=== PATIENT | female | born 1940 | race Caucasian/White ===

== ENCOUNTER → 2017-10-13 | Outpatient (CLI) | payer MEDICARE, BC ==
[~2017-10-13] MED LIST: PROHANCE 279.3MG/ML 15ML VIAL (A9576) As Ordered
== END ==
LOC: M RAD 10:42
DX: D35.02 Benign neoplasm of left adrenal gland (principal)
CPT/HCPCS: 74181

== ENCOUNTER → 2018-10-19 | Outpatient (CLI) | payer MEDICARE, BC ==
--- NOTE | 2018-10-20 06:17 | REP ---
MRI ADRENAL GLANDS WITHOUT CONTRAST: Multiple sequences obtained in the axial and coronal planes without the use of intravenous contrast. Comparison is made with a prior MRI 10/13/2017 as well as 10/31/2016. Left adrenal nodule again demonstrates signal characteristics compatible with adenoma. It is unchanged in size since the prior MRI examinations, measuring approximately 3.5 x 2.8 cm. Right adrenal gland is normal. The visualized liver, spleen, pancreas and kidneys are unremarkable and unchanged. I see no adenopathy or free fluid in the visualized abdomen. IMPRESSION: Stable left adrenal adenoma. Electronically Signed by Ras Carson MD 10/20/2018 11:48 P
== END ==
LOC: M RAD 09:44
PROVIDERS: ATTEND Nurse Practitioner Family
DX: D35.02 Benign neoplasm of left adrenal gland (principal)

== ENCOUNTER → 2019-10-20 | Outpatient (CLI) | payer MEDICARE, BC ==
[2019-10-20 14:13] LABS: BASO # 0.1 10^3/uL (0.0-0.2); BASO % 0.8 % (0.0-1.0); EOS # 0.2 10^3/uL (0.0-0.5); EOS % 1.4 % (0.0-3.0); HEMATOCRIT 43.8 % (36.0-47.0); HEMOGLOBIN 14.1 g/dl (12.0-15.5); LYMPH # 2.9 10^3/uL (1.5-5.0); LYMPH % 24.9 % (24.0-44.0); MEAN CORPUSCULAR HEMOGLOBIN 28.7 pg (27.0-33.0); MEAN CORPUSCULAR HGB CONC 32.2 g/dl (32.0-36.5); MONO # 0.7 10^3/uL (0.0-0.8); MONO % 5.9 % (0.0-5.0); NEUTROPHILS # 7.9 10^3/uL (1.5-8.5); NEUTROPHILS % 66.7 % (36.0-66.0); PLATELET COUNT, AUTOMATED 327 10^3/uL (150-450); RED BLOOD COUNT 4.92 10^6/uL (4.00-5.40); WHITE BLOOD COUNT 11.8 10^3/uL (4.0-10.0)
[2019-10-20 14:14] LABS: C REACTIVE PROTEIN QUANTITATIV < 0.30 MG/DL (0.00-0.30); RHEUMATOID FACTOR QUANT < 10.0 IU/ML (<15.0)
[2019-10-20 15:08] LABS: ERYTHROCYTE SEDIMENTATION RATE 25 mm/hr (0-30)
[2019-10-22 01:11] LABS: ANTI DOUBLE STRAND-DNA AB <1 IU/mL (0-9); ANTINUCLEAR ANTIBODIES DIRECT Positive (Negative); Lyme Disease IgG/IgM Antibodie <0.91 ISR (0.00-0.90); Lyme Disease IgM Ab Quantitati <0.80 index (0.00-0.79); RNP ANTIBODIES <0.2 AI (0.0-0.9); SJOGREN'S ANTI SS-A <0.2 AI (0.0-0.9); SJOGREN'S ANTI SS-B <0.2 AI (0.0-0.9); SMITH ANTIBODIES <0.2 AI (0.0-0.9)
== END ==
LOC: M PLALAB 11:29
PROVIDERS: ATTEND Orthopaedic Surgery
DX: M17.0 Bilateral primary osteoarthritis of knee (principal)

== ENCOUNTER → 2020-06-21 | Outpatient (REF) | payer MEDICARE, BC ==
[2020-06-22 11:03] LABS: APPEARANCE, URINE CLEAR (CLEAR); BACTERIA, URINE AUTO 1+ (NEGATIVE); BILIRUBIN, URINE AUTO NEGATIVE (NEGATIVE); BLOOD, URINE BLOOD 3+ (NEGATIVE); CALCIUM OXALATE CRYSTALS SMALL; COLOR, URINE YELLOW (YELLOW); GLUCOSE, URINE (UA) AUTO NEGATIVE (NEGATIVE); KETONE, URINE AUTO NEGATIVE (NEGATIVE); LEUKOCYTE ESTERASE, URINE AUTO 2+ (NEGATIVE); MUCUS, URINE SMALL (NEGATIVE); NITRITE, URINE AUTO NEGATIVE (NEGATIVE); PROTEIN, URINE AUTO NEGATIVE (NEGATIVE); RBC, URINE AUTO 11 /HPF (0-3); SPECIFIC GRAVITY URINE AUTO 1.008 (1.002-1.035); SQUAMOUS EPITHELIAL CELL UR AU 2 /HPF (0-6); UROBILINOGEN, URINE AUTO 0.2 mg/dL (0.0-2.0); WBC, URINE AUTO 35 /HPF (0-3)
== END ==
LOC: M SMT 10:05
PROVIDERS: ATTEND Nurse Practitioner Women's Health
DX: Z85.51 Personal history of malignant neoplasm of bladder (principal); Z79.899 Other long term (current) drug therapy

== ENCOUNTER → 2020-07-11 | Outpatient (REF) | payer MEDICARE, BC | LOC: M SMT 17:00 | PROVIDERS: ATTEND Urology | DX: Z85.51 Personal history of malignant neoplasm of bladder (principal) ==

== ENCOUNTER 2020-08-14 11:18 | Day surgery (SDC) | payer MEDICARE, BC ==
[~2020-08-14] VITALS: Ht 162.6 cm; Wt 71.2 kg
[~2020-08-14 11:18] MED LIST changes: +ACET-683 PO; +AMLO25TA PO; +ATEN50TA2 PO; +ATOR1TAB21 PO; +CILO50TA PO; +D31000TA2 PO; +FURO20TA2 PO; +IRON27TA2 PO; +LORA-243 PO; +LOSA100T50 PO; +LR 1,000 ML IV ONE; +METF500T13 PO; +OMEP40CA4 PO; -PROHANCE 279.3MG/ML 15ML VIAL (A9576) As Ordered; +SUCR1SS PO; +TRAM50TA2 PO; +VENTAER INH; +VITACAP8 PO; +VITMTA PO; +ceFAZolin SOD 2 GM in IV 1 EA IV ONE
[2020-08-14] MEDS ORDERED: ONDANSETRON 4MG/2ML VIAL As Ordered ONE (13:30)
[2020-08-14] MEDS ORDERED: LIDOCAINE 2% 100MG/5ML SDV (FOR ANES.) As Ordered ONE (13:30)
[2020-08-14] MEDS ORDERED: propofoL 200 MG/20 ML VIAL As Ordered ONE (13:30)
[2020-08-14] MEDS ORDERED: ROCURONIUM BROMIDE 50 MG/5 ML VIAL As Ordered ONE ×2 (13:30→15:27)
[2020-08-14] MEDS ORDERED: fentaNYL 250 MCG/5 ML INJECTION (J3010) As Ordered ONE (13:31)
[2020-08-14] MEDS ORDERED: MIDAZOLAM INJ 2MG/2ML VIAL (J2250 PER 1MG) As Ordered ONE (13:31)
[2020-08-14] MEDS ORDERED: dexameTHASONE 4 MG/ML 1ML VIAL (J1100 PER 1MG) As Ordered ONE (13:31)
[2020-08-14] MEDS ORDERED: ePHEDrine SULFATE 25 MG/5 ML(5MG/ML) SYRINGE As Ordered ONE (15:15)
[2020-08-14] MEDS ORDERED: ACETAMINOPHEN 1000MG 100ML IV BTL (OFIRMEV) (J0131 PER 10MG) As Ordered ONE (15:17)
[2020-08-14] MEDS ORDERED: SUGAMMADEX SODIUM 500 MG/5 ML VIAL (BRIDION) As Ordered ONE (15:17)
[2020-08-14] MEDS ORDERED: fentaNYL 100 MCG/2 ML INJECTION (J3010) As Ordered ONE (16:36)
[2020-08-14] MEDS ORDERED: ONDANSETRON 4MG/2ML VIAL IV PRN (17:40)
[2020-08-14] MEDS ORDERED: HYDROMORPHONE HCL 0.5 MG/ 0.5 ML SYRINGE (J1170 PER 1) IV PRN (17:40)
[2020-08-14] MEDS ORDERED: ACETAMINOPHEN TAB 650MG DOSE (2X325MG) PO PRN (17:40)
[2020-08-14] MEDS ORDERED: LR 1,000 ML IV SCH (17:40)
[2020-08-14] MEDS ORDERED: fentaNYL 100 MCG/2 ML INJECTION (J3010) IV PRN (17:40)
[2020-08-14] MEDS: oxyCODONE 5MG TAB PO PRN ×2 (18:43→19:14)
[2020-08-14 20:00] VITALS: BP 133/63
--- NOTE | 2020-08-14 20:15 | RO ---
OPERATIVE NOTE DATE OF OPERATION: 08/14/2020 PREOPERATIVE DIAGNOSES: Bladder cancer. POSTOPERATIVE DIAGNOSIS: Bladder cancer. PROCEDURE: Cystoscopy, transurethral resection of bladder tumors (greater than 5 cm). SURGEON: Gordo Potter MD [place] UNDERWRITER: None. ANESTHESIA: General. OPERATIVE INDICATIONS: This is a 80-year-old female who was diagnosed with bladder cancer at an outside facility several months ago. She established care with us and on office cystoscopy, she was found to have a large mass at the dome of the bladder which was suspicious either for a large amount of scar from her previous resection or active bladder tumor. She was brought to the operating room today to remove this mass. DESCRIPTION OF PROCEDURE: The patient was brought to the operating room and general anesthesia was induced. Prophylactic antibiotics were infused. She was placed in a dorsal lithotomy position, prepped and draped in the usual sterile fashion. At this point, a resectoscope was inserted into the urethral meatus and advanced into the bladder. Once inside the bladder, it was thoroughly examined and the only abnormality seen was the large mass. I then utilized a bipolar loop to start resecting the mass. Once I started resecting it, it was pretty evident that this was still viable tumor. I then resected the mass all the way down to the base. All of this tumor was removed from the bladder using a Urovac evacuator. This was sent off as bladder tumors. I then resected the base of the tumor and removed that from the bladder using a Urovac evacuator. This was sent off as resection of bladder tumor base. Once done, I thoroughly cauterized the base resection using a Plasma Button. Once satisfied with hemostasis and once I was certain all the tumor was removed, the resectoscope was removed from the bladder. I then inserted an 18 Azeri Hartley catheter into the bladder and the balloon was filled with 10 mL of sterile water. The catheter was connected to gravity drainage and this marked the conclusion of the procedure. The patient was taken out of the dorsal lithotomy position, awakened from anesthesia and transported to the recovery room in stable condition. ESTIMATED BLOOD LOSS: 25 mL COMPLICATIONS: None. SPECIMENS: Bladder tumors, resection of bladder tumor base. PLAN: The patient will follow up in urology clinic in approximately one week for catheter removal and to discuss pathology results. HITESH
== END 2020-08-14 20:11 | disposition home or self-care (01) ==
LOC: M SDC 11:18
PROVIDERS: ATTEND Urology
DX: C67.9 Malignant neoplasm of bladder, unspecified (principal); I10 Essential (primary) hypertension; E78.5 Hyperlipidemia, unspecified; E11.9 Type 2 diabetes mellitus without complications; K44.9 Diaphragmatic hernia without obstruction or gangrene; K21.9 Gastro-esophageal reflux disease without esophagitis; J44.9 Chronic obstructive pulmonary disease, unspecified; Z79.899 Other long term (current) drug therapy; Z91.041 Radiographic dye allergy status; Z88.1 Allergy status to other antibiotic agents; Z88.0 Allergy status to penicillin; Z88.2 Allergy status to sulfonamides
CPT/HCPCS: 52240; 88305; 88341; 88342; J0131; J0690; J1100; J2250; J2405; J3010

== ENCOUNTER → 2020-10-13 | Outpatient (REF) | payer MEDICARE, BC ==
[~2020-10-13] MED LIST changes: +ACET1TAB55 PO; +ALL10TAB PO; -LR 1,000 ML IV ONE; -ceFAZolin SOD 2 GM in IV 1 EA IV ONE
== END ==
LOC: M SMT 17:11
PROVIDERS: ATTEND Urology
DX: Z01.818 Encounter for other preprocedural examination (principal); C67.9 Malignant neoplasm of bladder, unspecified; N39.0 Urinary tract infection, site not specified

== ENCOUNTER → 2020-10-13 | Outpatient (CLI) | payer MEDICARE, BC | LOC: M LABSMTC 11:45 | PROVIDERS: ATTEND Anesthesiology | DX: Z01.812 Encounter for preprocedural laboratory examination (principal) ==

== ENCOUNTER 2020-10-18 07:36 | Day surgery (SDC) | payer MEDICARE, BC ==
[~2020-10-18] VITALS: Ht 162.6 cm; Wt 69.9 kg
[~2020-10-18 07:36] MED LIST changes: +LIDOCAINE 1% MDV 20ML VIAL SQ PRN; +LR 1,000 ML IV ONE; +ceFAZolin SOD 2 GM in IV 1 EA IV ONE
[2020-10-18] MEDS ORDERED: fentaNYL 100 MCG/2 ML INJECTION (J3010) As Ordered ONE ×2 (07:54→10:11)
[2020-10-18] MEDS ORDERED: ROCURONIUM BROMIDE 50 MG/5 ML VIAL As Ordered ONE (09:05)
[2020-10-18] MEDS ORDERED: propofoL 200 MG/20 ML VIAL As Ordered ONE (09:40)
[2020-10-18] MEDS ORDERED: SUGAMMADEX SODIUM 500 MG/5 ML VIAL (BRIDION) As Ordered ONE (09:40)
[2020-10-18] MEDS ORDERED: dexameTHASONE 4 MG/ML 1ML VIAL (J1100 PER 1MG) As Ordered ONE (09:40)
[2020-10-18] MEDS ORDERED: ONDANSETRON 4MG/2ML VIAL As Ordered ONE (09:40)
[2020-10-18] MEDS ORDERED: ACETAMINOPHEN 1000MG 100ML IV BTL (OFIRMEV) (J0131 PER 10MG) As Ordered ONE (09:42)
[2020-10-18] MEDS ORDERED: ePHEDrine SULFATE 25 MG/5 ML(5MG/ML) SYRINGE As Ordered ONE (09:46)
[2020-10-18] MEDS ORDERED: PHENYLephrine 500MCG 5ML (100MCG/ML) SYRINGE As Ordered ONE (10:08)
[2020-10-18] MEDS ORDERED: GLYCOPYRROLATE INJ 0.2 MG/ML 2 ML VIAL As Ordered ONE (10:16)
[2020-10-18] MEDS ORDERED: fentaNYL 100 MCG/2 ML INJECTION (J3010) IV PRN (11:35)
[2020-10-18] MEDS ORDERED: LR 1,000 ML IV SCH (11:35)
[2020-10-18] MEDS ORDERED: ONDANSETRON 4MG/2ML VIAL IV PRN (11:35)
[2020-10-18] MEDS ORDERED: ACETAMINOPHEN TAB 650MG DOSE (2X325MG) PO PRN (11:35)
[2020-10-18] MEDS: oxyCODONE 5MG TAB PO PRN ×2 (12:02→12:29)
--- NOTE | 2020-10-18 12:16 | RO ---
OPERATIVE NOTE DATE OF OPERATION: 10/18/2020 PREOPERATIVE DIAGNOSIS: Bladder cancer. POSTOPERATIVE DIAGNOSIS: Bladder cancer. PROCEDURE: Cystoscopy, transurethral resection of bladder tumor (greater than 5 cm). SURGEON: Gordo Potter MD NUCLEAR SPECTROSCOPIST: None. ANESTHESIA: General. 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 She was referred to medical oncology and radiation oncology to consider combination chemo and radiation therapy. A CT scan done prior to her appointment with them showed regrowth of tumor inside the bladder measuring 2-1/2 cm at that time. It was recommended that she be brought back to the operating room to re-resect prior to starting chemotherapy and radiation therapy. DESCRIPTION OF PROCEDURE: The patient was brought to the operating room and general anesthesia was induced. Prophylactic antibiotics were infused. She was placed in the dorsal lithotomy position, and prepped and draped in the usual sterile fashion. A resectoscope was inserted in the urethral meatus and advanced into the bladder. The bladder was then thoroughly examined. There appeared to be three large tumors at this time growing near the dome of the bladder. Altogether they probably measured around 5-6 cm in size. This appeared to be as large or larger than the tumor that was resected about two months ago, indicating a very aggressive tumor. At this point, I utilized a bipolar loop to resect all visible tumor in the bladder. I did resect down into the muscle layer. Once done, all of the tumor was removed from the bladder using a Urovac evacuator. I then thoroughly cauterized the areas of resection using a Plasma button. Once satisfied with hemostasis, the resectoscope was removed and an 18 Vincentian Hartley catheter was inserted into the bladder. The balloon was filled with 10 mL of sterile water and then the catheter was connected to gravity drainage. This marked the conclusion of the procedure. The patient was taken out of the dorsal lithotomy position, awakened from anesthesia and transported to the recovery room in stable condition. ESTIMATED BLOOD LOSS: 10 mL COMPLICATIONS: None. SPECIMENS: Bladder tumor. PLAN: The patient will follow up in urology clinic in one week for catheter removal and for pathology results. We will touch base with the patient's radiation oncologist today to let her know that resection has been done so that she can promptly be set up to start her chemotherapy and radiation therapy. MTDD
[2020-10-18] MEDS ORDERED: CIPR-249 PO (12:43)
[2020-10-18 14:00] VITALS: BP 145/68
== END 2020-10-18 14:00 | disposition home or self-care (01) ==
LOC: M SDC 07:36
PROVIDERS: ATTEND Urology
DX: C67.9 Malignant neoplasm of bladder, unspecified (principal); K21.9 Gastro-esophageal reflux disease without esophagitis; E11.9 Type 2 diabetes mellitus without complications; I10 Essential (primary) hypertension; E78.5 Hyperlipidemia, unspecified; Z87.891 Personal history of nicotine dependence; Z79.02 Long term (current) use of antithrombotics/antiplatelets; Z91.041 Radiographic dye allergy status; J44.9 Chronic obstructive pulmonary disease, unspecified; K44.9 Diaphragmatic hernia without obstruction or gangrene; Z79.899 Other long term (current) drug therapy; Z88.2 Allergy status to sulfonamides; Z88.0 Allergy status to penicillin; Z88.1 Allergy status to other antibiotic agents; E04.9 Nontoxic goiter, unspecified
CPT/HCPCS: 52240; 88305; J0131; J0690; J1100; J2370; J2405; J3010